=== PATIENT | female | born 1970 | race American Indian/Alaskan Native ===

== ENCOUNTER 2018-04-07 12:52 | Emergency (ER) | payer BC ==
[2018-04-07 12:58] VITALS: BP 150/73
[2018-04-07] MEDS ORDERED: predniSONE 20 MG Tab PO ONE (13:22)
[2018-04-07] MEDS ORDERED: Acetaminophen/HYDROcodone 325-10 MG Tab PO ONE (13:23)
[2018-04-07] MEDS ORDERED: Lidocaine 5% Oint 35.44 GM Tube TOP ONE (13:23)
[2018-04-07 13:54] LABS: ANION GAP 12.4; CHLORIDE,CL 105 mmol/L (101-111); SODIUM,NA 141 mmol/L (135-145)
--- NOTE | 2018-04-07 16:12 | EDM.PDOC ---
Scribed by Jenna Christiansen 04/07/18 1422 for Yang Sharma MD ED HPI GENERAL MEDICAL PROBLEM - General Chief Complaint: Lower Extremity Injury/Pain Stated Complaint: RT FOOT PROBLEMS [phone] Time Seen by Provider: 04/07/18 13:05 Source of Information: Reports: Patient, RN, RN Notes Reviewed History Limitations: Reports: No Limitations - History of Present Illness INITIAL COMMENTS - FREE TEXT/NARRATIVE: Patient presents to ER with complaint of severely painful right first toe without any injury, onset 3 days ago much worse today. Patient feels it is red, hot and swollen. Denies fever or chills. Right 1-Hallux Pain Score (Numeric/FACES): 7 - Related Data Allergies Allergy/AdvReac Type Severity Reaction Status Date / Time amoxicillin Allergy Hives Verified 04/07/18 12:58 Penicillins Allergy Rash Verified 04/07/18 12:58 Home Meds: Home Meds Lisinopril 10 mg PO DAILY 05/29/14 [History] Levothyroxine 112 mcg PO ACBREAKFAST 12/07/15 [History] Acetaminophen [Tylenol Extra Strength] 1,000 mg PO Q4H 02/04/16 [History] atorvaSTATin [Lipitor] 40 mg PO DAILY 04/07/18 [History] Past Medical History HEENT History: Reports: None Cardiovascular History: Reports: High Cholesterol, Hypertension Respiratory History: Reports: None Gastrointestinal History: Reports: None Genitourinary History: Reports: None 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 Musculoskeletal History: Reports: RA Neurological History: Reports: Headaches, Chronic Other Neuro History: headaches Psychiatric History: Reports: None Endocrine/Metabolic History: Reports: Hypoparathyroidism Hematologic History: Reports: None Immunologic History: Reports: Solid Organ Transplant Oncologic (Cancer) History: Reports: None Dermatologic History: Reports: None - Infectious Disease History Infectious Disease History: Reports: None - Past Surgical History Head Surgeries/Procedures: Reports: None GI Surgical History: Reports: Appendectomy Female Surgical History: Reports: Hysterectomy Social & Family History - Family History Family Medical History: Noncontributory - Tobacco Use Smoking Status *Q: Current Every Day Smoker Years of Tobacco use: 15 Packs/Tins Daily: 0.5 Second Hand Smoke Exposure: Yes - Recreational Drug Use Recreational Drug Use: No - Living Situation & Occupation Living situation: Reports: , with Family Occupation: Employed Review of Systems - Review of Systems Review Of Systems: ROS reveals no pertinent complaints other than HPI. ED EXAM, GENERAL - Physical Exam Exam: See Below Exam Limited By: No Limitations General Appearance: Alert, WD/WN, No Apparent Distress Eye Exam: Bilateral Eye: Normal Inspection Ears: Normal External Exam, Normal Canal, Hearing Grossly Normal, Normal TMs Nose: Normal Inspection, Normal Mucosa, No Blood Throat/Mouth: Normal Inspection, Normal Lips, Normal Teeth, Normal Gums, Normal Oropharynx, Normal Voice, No Airway Compromise Head: Atraumatic, Normocephalic Neck: Normal Inspection, Supple, Non-Tender, Full Range of Motion Respiratory/Chest: No Respiratory Distress, Lungs Clear, Normal Breath Sounds, No Accessory Muscle Use, Chest Non-Tender Cardiovascular: Normal Peripheral Pulses, Regular Rate, Rhythm, No Edema, No Gallop, No JVD, No Murmur, No Rub GI/Abdominal: Normal Bowel Sounds, Soft, Non-Tender, No Organomegaly, No Distention, No Abnormal Bruit, No Mass (Female) Exam: Deferred Rectal (Female) Exam: Deferred Back Exam: Normal Inspection, Full Range of Motion, NT Extremities: No Pedal Edema, Normal Capillary Refill, Joint Swelling (right first MTPJ with tenderness and erythema. Skin is intact. ), Increased Warmth Neurological: Alert, Oriented, CN II-XII Intact, Normal Cognition, Normal Gait, Normal Reflexes, No Motor/Sensory Deficits Psychiatric: Normal Affect, Normal Mood Skin Exam: Warm, Dry, Intact, Normal Color, No Rash Course - Vital Signs Last Recorded V/S: Last Vital Signs Temp 36.2 C 04/07/18 12:55 Pulse 88 04/07/18 12:55 Resp 18 04/07/18 12:55 BP 150/73 H 04/07/18 12:55 Pulse Ox 100 04/07/18 12:55 - Orders/Labs/Meds Orders: Active Orders 24 hr Category Date Time Status DME for Discharge [COMM] Routine Oth 04/07/18 14:22 Ordered Labs: Laboratory Tests 04/07/18 04/07/18 04/07/18 Range/Units 13:30 13:30 13:30 WBC 9.5 (5.0-10.0) 10^3/uL RBC 4.21 (4.2-5.4) 10^6/uL Hgb 13.9 (12.0-16.0) g/dL Hct 42.5 (37.0-47.0) % MCV 101.0 H (80-100) fL MCH 33.0 (27.0-34.0) pg MCHC 32.7 L (33.0-35.0) g/dL Plt Count 322 (150-450) 10^3/uL Neut % (Auto) 62.6 (42.2-75.2) % Lymph % (Auto) 26.5 (20.5-50.1) % [place] % (Auto) 6.7 (2-8) % Eos % (Auto) 3.9 H (1.0-3.0) % Baso % (Auto) 0.3 (0.0-1.0) % ESR 10 (0-20) mm/hr Sodium 141 (135-145) mmol/L Potassium 4.4 (3.6-5.0) mmol/L Chloride 105 (101-111) mmol/L Carbon Dioxide 28.0 (21.0-31.0) mmol/L Anion Gap 12.4 BUN 19 H (7-18) mg/dL Creatinine 0.9 (0.6-1.3) mg/dL Est Cr Clr Drug Dosing 70.78 mL/min Estimated GFR (MDRD) > 60 BUN/Creatinine Ratio 21.11 Glucose 171 H (74-105) mg/dL Uric Acid (2.6-7.2) mg/dL Calcium 9.0 (8.4-10.2) mg/dl Total Bilirubin 0.6 (0.2-1.0) mg/dL AST 19 (10-42) IU/L ALT 18 (10-60) IU/L Alkaline Phosphatase 55 (42-121) IU/L C-Reactive Protein 1.8 H (0.0-1.3) mg/dL Total Protein 7.5 (6.7-8.2) g/dl Albumin 4.3 (3.2-5.5) g/dl Globulin 3.2 Albumin/Globulin Ratio 1.34 04/07/18 Range/Units 13:30 WBC (5.0-10.0) 10^3/uL RBC (4.2-5.4) 10^6/uL Hgb (12.0-16.0) g/dL Hct (37.0-47.0) % MCV (80-100) fL MCH (27.0-34.0) pg MCHC (33.0-35.0) g/dL Plt Count (150-450) 10^3/uL Neut % (Auto) (42.2-75.2) % Lymph % (Auto) (20.5-50.1) % [place] % (Auto) (2-8) % Eos % (Auto) (1.0-3.0) % Baso % (Auto) (0.0-1.0) % ESR (0-20) mm/hr Sodium (135-145) mmol/L Potassium (3.6-5.0) mmol/L Chloride (101-111) mmol/L Carbon Dioxide (21.0-31.0) mmol/L Anion Gap BUN (7-18) mg/dL Creatinine (0.6-1.3) mg/dL Est Cr Clr Drug Dosing mL/min Estimated GFR (MDRD) BUN/Creatinine Ratio Glucose (74-105) mg/dL Uric Acid 6.5 (2.6-7.2) mg/dL Calcium (8.4-10.2) mg/dl Total Bilirubin (0.2-1.0) mg/dL AST (10-42) IU/L ALT (10-60) IU/L Alkaline Phosphatase (42-121) IU/L C-Reactive Protein (0.0-1.3) mg/dL Total Protein (6.7-8.2) g/dl Albumin (3.2-5.5) g/dl Globulin Albumin/Globulin Ratio Meds: Medications Discontinued Medications Generic Name Dose Route Start Last Admin Trade Name Freq PRN Reason Stop Dose Admin Hydrocodone Bitart/Acetaminophen 1 tab 04/07/18 13:23 04/07/18 13:35 Brilliant 325-10 Mg PO 04/07/18 13:24 1 tab ONETIME ONE Administration Lidocaine HCl 15 gm 04/07/18 13:23 04/07/18 13:36 Lidocaine 5% TOP 04/07/18 13:24 15 gm ONETIME ONE Administration Prednisone 60 mg 04/07/18 13:22 04/07/18 13:34 Prednisone PO 04/07/18 13:23 60 mg ONETIME ONE Administration Departure - Departure Time of Disposition: 14:18 Disposition: Home, Self-Care 01 Condition: Fair Clinical Impression: Rheumatoid arthritis flare, Acute hyperglycemia - Discharge Information Instructions: Arthritis, [id number], Hyperglycemia, [id number] Forms: ED Department Discharge Additional Instructions: Rx: Toradol 10mg Rx: Brilliant 5mg/325mg *Do not drive or work while under the influence of this medication. Use crutches as needed for comfort. Follow up in clinic in the next week for recheck. - My Orders Last 24 Hours: My Active Orders 04/07/18 14:22 DME for Discharge [COMM] Routine - Assessment/Plan Last 24 Hours: My Active Orders 04/07/18 14:22 DME for Discharge [COMM] Routine I have read and agree with the documentation that has been completed regarding this visit. By signing this record, I attest that the documentation was completed in my physical presence and is an accurate record of the encounter.
== END 2018-04-07 14:36 | disposition home or self-care (01) ==
LOC: DL.ED 12:52
DX: M06.9 Rheumatoid arthritis, unspecified (principal); R73.9 Hyperglycemia, unspecified; E20.9 Hypoparathyroidism, unspecified; I10 Essential (primary) hypertension; F17.210 Nicotine dependence, cigarettes, uncomplicated; E78.00 Pure hypercholesterolemia, unspecified; Z88.1 Allergy status to other antibiotic agents; Z88.0 Allergy status to penicillin; Z79.899 Other long term (current) drug therapy
CPT/HCPCS: 36415; 80053; 84550; 85025; 85651; 86140; 99283; A9270

== ENCOUNTER 2021-03-05 19:00 | Emergency (ER) | payer BC ==
[2021-03-05 19:25] VITALS: BP 146/89; PULSE 82
[2021-03-05] MEDS ORDERED: HYDROmorphone 0.5 MG/0.5 ML Syringe IVPUSH ONE (20:11)
--- NOTE | 2021-03-05 20:11 | EDM.PDOC ---
ED HPI GENERAL MEDICAL PROBLEM - General Chief Complaint: Abdominal Pain Stated Complaint: BACK AND ABD PAIN Time Seen by Provider: 03/05/21 19:55 Source of Information: Reports: Patient History Limitations: Reports: No Limitations - History of Present Illness INITIAL COMMENTS - FREE TEXT/NARRATIVE: This 51 yo female patient reports to the ED with increased abdominal and back p ain. The patient reports she was seen in the Clinic on Monday, had a gallbladder ultrasound on Monday, and notified today of the results. The patient reports she has had increased symptoms over the past 24 hours to the point that she is currently unable to tolerate the pain. Onset Date: 03/04/21 Duration: Constant, Getting Worse Location: Reports: Abdomen (upper abdomen and lower back pain) Quality: Reports: Ache, Pressure, Sharp Severity: Severe Improves with: Reports: None Worsens with: Reports: None Context: Reports: Other Associated Symptoms: Reports: No Other Symptoms - Related Data Allergies Allergy/AdvReac Type Severity Reaction Status Date / Time amoxicillin Allergy Hives Verified 04/07/18 12:58 Penicillins Allergy Rash Verified 04/07/18 12:58 Home Meds: Home Meds Lisinopril 10 mg PO DAILY 05/29/14 [History] Levothyroxine 112 mcg PO ACBREAKFAST 12/07/15 [History] Acetaminophen [Tylenol Extra Strength] 1,000 mg PO Q4H 02/04/16 [History] atorvaSTATin [Lipitor] 40 mg PO DAILY 04/07/18 [History] Past Medical History HEENT History: Reports: None Cardiovascular History: Reports: High Cholesterol, Hypertension Respiratory History: Reports: None Gastrointestinal History: Reports: Cholelithiasis Genitourinary History: Reports: None 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 Musculoskeletal History: Reports: None, RA Neurological History: Reports: Headaches, Chronic Other Neuro History: headaches Psychiatric History: Reports: None Endocrine/Metabolic History: Reports: Hypoparathyroidism Hematologic History: Reports: None Immunologic History: Reports: Solid Organ Transplant Oncologic (Cancer) History: Reports: None Dermatologic History: Reports: None - Infectious Disease History Infectious Disease History: Reports: None - Past Surgical History Head Surgeries/Procedures: Reports: None GI Surgical History: Reports: Appendectomy Female Surgical History: Reports: Hysterectomy Social & Family History - Family History Family Medical History: No Pertinent Family History - Tobacco Use Tobacco Use Status *Q: Current Every Day Tobacco User Years of Tobacco use: 20 Packs/Tins Daily: 0.5 - Living Situation & Occupation Living situation: Reports: , with Family Occupation: Employed ED ROS GENERAL - Review of Systems Review Of Systems: Comprehensive ROS is negative, except as noted in HPI. ED EXAM, GI/ABD - Physical Exam Exam: See Below Exam Limited By: No Limitations General Appearance: Alert, WD/WN, Moderate Distress Eyes: Bilateral: Normal Appearance, EOMI Ears: Normal External Exam, Normal Canal, Hearing Grossly Normal, Normal TMs Nose: Normal Inspection, Normal Mucosa, No Blood Throat/Mouth: Normal Inspection, Normal Lips, Normal Teeth, Normal Gums, Normal Oropharynx, Normal Voice, No Airway Compromise Head: Atraumatic, Normocephalic Neck: Normal Inspection, Supple, Non-Tender, Full Range of Motion Respiratory/Chest: No Respiratory Distress, Lungs Clear, Normal Breath Sounds, No Accessory Muscle Use, Chest Non-Tender Cardiovascular: Normal Peripheral Pulses, Regular Rate, Rhythm, No Edema, No Gallop, No JVD, No Murmur, No Rub GI/Abdominal Exam: Normal Bowel Sounds, No Organomegaly, No Distention, No Abnormal Bruit, No Mass, Pelvis Stable, Tender (upper abdomen) (Female) Exam: Deferred Rectal (Female) Exam: Deferred Back Exam: Normal Inspection, Full Range of Motion, NT Extremities: Normal Inspection, Normal Range of Motion, Non-Tender, Normal Capillary Refill, No Pedal Edema Neurological: Alert, Oriented, CN II-XII Intact, Normal Cognition, Normal Gait, Normal Reflexes, No Motor/Sensory Deficits Psychiatric: Normal Affect, Normal Mood Skin Exam: Warm, Dry, Intact, Normal Color, No Rash Lymphatic: No Adenopathy Course - Vital Signs Last Recorded V/S: Last Vital Signs Temp 98.2 F 03/05/21 19:23 Pulse 82 03/05/21 19:23 Resp 18 03/05/21 19:23 BP 146/89 H 03/05/21 19:23 Pulse Ox 97 03/05/21 19:23 - Orders/Labs/Meds Orders: Active Orders 24 hr Category Date Time Status Sodium Chloride 0.9% @ 125 MLS/HR (1000ml) Med 03/05/21 20:15 Ordered Sodium Chloride 0.9% [Normal Saline] 1,000 ml IV ASDIRECTED Medication Orders Sodium Chloride (Normal Saline) 1,000 mls @ 125 mls/hr IV ASDIRECTED CHENTE Labs: Laboratory Tests 03/05/21 03/05/21 03/05/21 Range/Units 20:09 20:16 20:16 WBC 9.7 (5.0-10.0) 10^3/uL RBC 4.15 L (4.2-5.4) 10^6/uL Hgb 14.0 (12.0-16.0) g/dL Hct 41.5 (37.0-47.0) % MCV 100.0 (80-100) fL MCH 33.7 (27.0-34.0) pg MCHC 33.7 (33.0-35.0) g/dL Plt Count 306 (150-450) 10^3/uL Neut % (Auto) 49.2 (42.2-75.2) % Lymph % (Auto) 37.6 (20.5-50.1) % [place] % (Auto) 7.8 (2-8) % Eos % (Auto) 5.0 H (1.0-3.0) % Baso % (Auto) 0.4 (0.0-1.0) % Sodium 147 H (136-145) mmol/L Potassium 4.0 (3.5-5.1) mmol/L Chloride 108 H (98-107) mmol/L Carbon Dioxide 26 (21-32) mmol/L Anion Gap 17.0 H (7-13) mEq/L BUN 13 (7-18) mg/dL Creatinine 0.97 (0.55-1.02) mg/dL Est Cr Clr Drug Dosing 63.51 mL/min Estimated GFR (MDRD) > 60 BUN/Creatinine Ratio 13.4 (No establ ref range) Glucose 145 H (70-99) mg/dL Lactic Acid (0.4-2.0) mmol/L Calcium 8.5 (8.5-10.1) mg/dL Total Bilirubin 0.2 (0.2-1.0) mg/dL AST 15 (15-37) U/L ALT 32 (14-59) U/L Alkaline Phosphatase 66 (46-116) U/L Total Protein 7.2 (6.4-8.2) g/dL Albumin 4.0 (3.4-5.0) g/dL Globulin 3.2 Albumin/Globulin Ratio 1.3 Amylase 53 (25-115) U/L Lipase 194 (73-393) U/L Urine Color Yellow (YELLOW) Urine Appearance Clear (CLEAR) Urine pH 6.0 (5.0-9.0) Ur Specific [place] 1.025 (1.005-1.030) Urine Protein Negative (NEGATIVE) Urine Glucose (UA) Negative (NEGATIVE) Urine Ketones Trace H (NEGATIVE) Urine Occult Blood Negative (NEGATIVE) Urine Nitrite Negative (NEGATIVE) Urine Bilirubin Negative (NEGATIVE) Urine Urobilinogen 1.0 (0.2-1.0) mg/dL Ur Leukocyte Esterase Negative (NEGATIVE) 03/05/21 Range/Units 20:16 WBC (5.0-10.0) 10^3/uL RBC (4.2-5.4) 10^6/uL Hgb (12.0-16.0) g/dL Hct (37.0-47.0) % MCV (80-100) fL MCH (27.0-34.0) pg MCHC (33.0-35.0) g/dL Plt Count (150-450) 10^3/uL Neut % (Auto) (42.2-75.2) % Lymph % (Auto) (20.5-50.1) % [place] % (Auto) (2-8) % Eos % (Auto) (1.0-3.0) % Baso % (Auto) (0.0-1.0) % Sodium (136-145) mmol/L Potassium (3.5-5.1) mmol/L Chloride (98-107) mmol/L Carbon Dioxide (21-32) mmol/L Anion Gap (7-13) mEq/L BUN (7-18) mg/dL Creatinine (0.55-1.02) mg/dL Est Cr Clr Drug Dosing mL/min Estimated GFR (MDRD) BUN/Creatinine Ratio (No establ ref range) Glucose (70-99) mg/dL Lactic Acid 1.2 (0.4-2.0) mmol/L Calcium (8.5-10.1) mg/dL Total Bilirubin (0.2-1.0) mg/dL AST (15-37) U/L ALT (14-59) U/L Alkaline Phosphatase (46-116) U/L Total Protein (6.4-8.2) g/dL Albumin (3.4-5.0) g/dL Globulin Albumin/Globulin Ratio Amylase (25-115) U/L Lipase (73-393) U/L Urine Color (YELLOW) Urine Appearance (CLEAR) Urine pH (5.0-9.0) Ur Specific [place] (1.005-1.030) Urine Protein (NEGATIVE) Urine Glucose (UA) (NEGATIVE) Urine Ketones (NEGATIVE) Urine Occult Blood (NEGATIVE) Urine Nitrite (NEGATIVE) Urine Bilirubin (NEGATIVE) Urine Urobilinogen (0.2-1.0) mg/dL Ur Leukocyte Esterase (NEGATIVE) Meds: Medications Generic Name Dose Route Start Last Admin Trade Name Freq PRN Reason Stop Dose Admin Sodium Chloride 1,000 mls @ 125 mls/hr 03/05/21 20:15 Normal Saline IV ASDIRECTED CHENTE Discontinued Medications Generic Name Dose Route Start Last Admin Trade Name Freq PRN Reason Stop Dose Admin Hydromorphone HCl 0.5 mg 03/05/21 20:11 03/05/21 20:47 Hydromorphone 0.5 Mg/0.5 Ml Syringe IVPUSH 03/05/21 20:12 0.5 mg ONETIME ONE Administration - Re-Assessments/Exams Free Text/Narrative Re-Assessment/Exam: 03/05/21 21:11 Discussed the lab results with the patient. No CT will be done during the visit today. The patient will be given pain medication to take as needed. The patient should follow-up with her primary next week. Departure - Departure Time of Disposition: 21:12 Disposition: Home, Self-Care 01 Condition: Fair Clinical Impression: Disease of gallbladder - Discharge Information *PRESCRIPTION DRUG MONITORING PROGRAM REVIEWED*: Not Applicable *COPY OF PRESCRIPTION DRUG MONITORING REPORT IN PATIENT JUANI: Not Applicable Forms: ED Department Discharge Care Plan Goals: The patient was advised of the examination and lab results during the visit. The patient was given an IV dose of Dilaudid while in the ED. The patient was discharged with a script for [place] () #8 to take 1 by mouth every 6 hours as needed for pain. The patient should follow-up with her primary care facility next week as scheduled. If the patient has any additional symptoms or concerns, the patient should either return to the emergency department or visit her primary care facility. Sepsis Event Note (ED) - Evaluation Sepsis Screening Result: No Definite Risk - Focused Exam Vital Signs: Vital Signs Temp Pulse Resp BP Pulse Ox 03/05/21 19:23 98.2 F 82 18 146/89 H 97 - My Orders Last 24 Hours: My Active Orders 03/05/21 20:15 Sodium Chloride 0.9% @ 125 MLS/HR (1000ml) Sodium Chloride 0.9% [Normal Saline] 1,000 ml IV ASDIRECTED - Assessment/Plan Last 24 Hours: My Active Orders 03/05/21 20:15 Sodium Chloride 0.9% @ 125 MLS/HR (1000ml) Sodium Chloride 0.9% [Normal Saline] 1,000 ml IV ASDIRECTED
[2021-03-05] MEDS ORDERED: Sodium Chloride 0.9% 1,000 ML IV SCH (20:15)
[2021-03-05 20:41] LABS: CHLORIDE,CL 108 mmol/L (98-107); SODIUM,NA 147 mmol/L (136-145)
== END 2021-03-05 21:22 | disposition home or self-care (01) ==
LOC: DL.ED 19:00
DX: K82.9 Disease of gallbladder, unspecified (principal); E03.9 Hypothyroidism, unspecified; Z88.0 Allergy status to penicillin; Z79.899 Other long term (current) drug therapy; Z72.0 Tobacco use
CPT/HCPCS: 36415; 80053; 81003; 82150; 83605; 83690; 85025; 96374; 99284; J1170

== ENCOUNTER 2021-03-31 08:03 | Emergency (ER) | payer BC ==
[2021-03-31] MEDS ORDERED: Ondansetron 4 MG/2 ML SDV IVPUSH ONE (08:19)
[2021-03-31 08:45] VITALS: BP 117/54; PULSE 70
[2021-03-31 08:48] LABS: ANION GAP 15.9 mEq/L (7-13); CHLORIDE,CL 105 mmol/L (98-107); SODIUM,NA 142 mmol/L (136-145)
[2021-03-31] MEDS ORDERED: Iopamidol 612 MG/ML 100 ML Bottle IVPUSH ONE (08:58)
[2021-03-31 09:15] LABS: AMPHETAMINES,URINE NEGATIVE (NEGATIVE); BARBITURATES,URINE NEGATIVE (NEGATIVE); BENZODIAZEPINE,URINE NEGATIVE (NEGATIVE); MDMA (ECSTASY), URINE NEGATIVE (NEGATIVE); METHADONE,URINE NEGATIVE (NEGATIVE); METHAMPHETAMINES,URINE NEGATIVE (NEGATIVE); OPIATES,URINE NEGATIVE (NEGATIVE); OXYCODONE,URINE NEGATIVE (NEGATIVE); PHENCYCLIDINE,URINE NEGATIVE (NEGATIVE); TCA,URINE NEGATIVE (NEGATIVE)
--- NOTE | 2021-03-31 09:46 | CT ---
PROCEDURE INFORMATION: Exam: CT Abdomen And Pelvis With Contrast Exam date and time: 03/31/2021 9:11 AM Age: 51 years old Clinical indication: Other: S/P lap radha on 03/09/21; Ruq pain x1 week; Prior surgery; Surgery date: <1 month TECHNIQUE: Imaging protocol: Computed tomography of the abdomen and pelvis with contrast. Radiation optimization: All CT scans at this facility use at least one of these dose optimization techniques: automated exposure control; mA and/or kV adjustment per patient size (includes targeted exams where dose is matched to clinical indication); or iterative reconstruction. Contrast material: ISOVUE 300; Contrast volume: 75 ml; Contrast route: INTRAVENOUS (IV); COMPARISON: US Abdomen Comp 03/01/2021 9:00 AM FINDINGS: Liver: Diffuse fatty infiltration of the liver. The liver is enlarged at 21.6 cm. Gallbladder and bile ducts: Cholecystectomy. No dilatation of intrahepatic bile ducts. Common bile duct measures 7 mm. No stones identified within the duct. Pancreas: Normal. No ductal dilation. Spleen: Spleen measures 9.9 cm. Adrenal glands: Normal. No mass. Kidneys and ureters: Left kidney is absent. Stomach and bowel: No dilatation of large or small bowel loops. No evidence of bowel obstruction. Appendix: No evidence of appendicitis. Intraperitoneal space: No free intraperitoneal air or fluid. Retroperitoneal space: Surgical clips present in the retroperitoneum. Vasculature: Unremarkable. No abdominal aortic aneurysm. Lymph nodes: Unremarkable. No enlarged lymph nodes. Urinary bladder: Unremarkable as visualized. Reproductive: Unremarkable as visualized. Bones/joints: Unremarkable. No acute fracture. Soft tissues: Midline fat containing periumbilical hernia. Defect measures 24 mm. Other findings: No localized fluid collection or biloma. IMPRESSION: 1. Prior cholecystectomy. No evidence of biloma. 2. No dilatation of bile ducts. 3. Hepatomegaly with diffuse fatty infiltration of the liver. 4. Prior left nephrectomy. 5. Midline periumbilical fat containing hernia. No bowel obstruction.
--- NOTE | 2021-03-31 09:59 | EDM.PDOC ---
ED HPI GENERAL MEDICAL PROBLEM - General Chief Complaint: Abdominal Pain Stated Complaint: [id number] A LOT OF PAIN IN STOMACH Time Seen by Provider: 03/31/21 09:00 Source of Information: Reports: Patient, Family (), RN, RN Notes Reviewed History Limitations: Reports: No Limitations - History of Present Illness INITIAL COMMENTS - FREE TEXT/NARRATIVE: Shahid is a 51 y/o female who is POD #22 s/p lap cholecystectomy with Dr. Dawn at [facility] who presents to the ED via personal vehicle with for complaints of midepigastric pain, rigors, nausea, and vomiting. The patient reports her pain has waxed and wanes since surgery, but has progressively worsened over the past week. Additionally, she notes her nausea began last evening and she experienced several bouts of emesis this morning. The patient reports bilious diarrhea since surgery, as well. She denies fever, palpitations, shortness of breath, melena, hematochezia, dysuria, or hematuria. She denies tobacco, alcohol, or recreational drug use. The patient states she has taken no medications for her symptoms. - Related Data Allergies Allergy/AdvReac Type Severity Reaction Status Date / Time amoxicillin Allergy Hives Verified 04/07/18 12:58 Penicillins Allergy Rash Verified 04/07/18 12:58 Home Meds: Home Meds Lisinopril 10 mg PO DAILY 05/29/14 [History] Levothyroxine 112 mcg PO ACBREAKFAST 12/07/15 [History] Acetaminophen [Tylenol Extra Strength] 1,000 mg PO Q4H 02/04/16 [History] atorvaSTATin [Lipitor] 40 mg PO DAILY 04/07/18 [History] metFORMIN HCl [Metformin HCl] 1,000 mg PO BID 03/31/21 [History] Past Medical History HEENT History: Reports: None Cardiovascular History: Reports: High Cholesterol, Hypertension Respiratory History: Reports: None Gastrointestinal History: Reports: Cholelithiasis Genitourinary History: Reports: None BUSINESS ANALYSIS CONSULTANT History: Reports: None Musculoskeletal History: Reports: None, RA Neurological History: Reports: Headaches, Chronic Other Neuro History: headaches Psychiatric History: Reports: None Endocrine/Metabolic History: Reports: Hypoparathyroidism Hematologic History: Reports: None Immunologic History: Reports: Solid Organ Transplant Oncologic (Cancer) History: Reports: None Dermatologic History: Reports: None - Infectious Disease History Infectious Disease History: Reports: None - Past Surgical History Head Surgeries/Procedures: Reports: None GI Surgical History: Reports: Appendectomy, Cholecystectomy Female Surgical History: Reports: Hysterectomy Social & Family History - Family History Family Medical History: No Pertinent Family History - Tobacco Use Tobacco Use Status *Q: Current Every Day Tobacco User Years of Tobacco use: 20 Packs/Tins Daily: 1 - Caffeine Use Caffeine Use: Reports: Coffee, Soda - Recreational Drug Use Recreational Drug Use: No - Living Situation & Occupation Living situation: Reports: , with Family Occupation: Employed ED ROS GENERAL - Review of Systems Review Of Systems: Comprehensive ROS is negative, except as noted in HPI. ED EXAM, GI/ABD - Physical Exam Exam: See Below Exam Limited By: No Limitations General Appearance: Alert, Mild Distress (Midepigastric pain), Obese. No: Active Emesis Eyes: Bilateral: Normal Appearance, EOMI Ears: Normal External Exam, Hearing Grossly Normal Nose: Normal Inspection, Normal Mucosa, No Blood Throat/Mouth: Normal Inspection, Normal Oropharynx, Normal Voice, No Airway Compromise Head: Atraumatic, Normocephalic Neck: Normal Inspection, Supple, Non-Tender, Full Range of Motion Respiratory/Chest: No Respiratory Distress, Lungs Clear, Normal Breath Sounds, No Accessory Muscle Use, Chest Non-Tender Cardiovascular: Normal Peripheral Pulses, Regular Rate, Rhythm, No Edema, No Gallop, No JVD, No Murmur, No Rub GI/Abdominal Exam: Soft, No Distention, No Abnormal Bruit, No Mass, Pelvis Stable, Tender (To bilateral upper quadrants), Abnormal Bowel Sounds (Hypoactive bowel sounds) (Female) Exam: Deferred Rectal (Female) Exam: Deferred Back Exam: Normal Inspection, Full Range of Motion. No: CVA Tenderness (L), CVA Tenderness (R) Extremities: Normal Inspection, Normal Range of Motion, Non-Tender, Normal Capillary Refill, No Pedal Edema Neurological: Alert, Oriented, CN II-XII Intact, Normal Cognition, Normal Gait, No Motor/Sensory Deficits Psychiatric: Normal Affect, Normal Mood Skin Exam: Warm, Dry, Intact, Normal Color, No Rash. No: Cyanosis, Jaundice, Mottled, Pallor Lymphatic: No Adenopathy Course - Vital Signs Last Recorded V/S: Last Vital Signs Temp 98 F 03/31/21 08:44 Pulse 70 03/31/21 08:44 Resp 14 03/31/21 08:44 BP 117/54 L 03/31/21 08:44 Pulse Ox 96 03/31/21 08:44 - Orders/Labs/Meds Labs: Laboratory Tests 03/31/21 03/31/21 03/31/21 Range/Units 08:20 08:20 08:20 WBC 9.2 (5.0-10.0) 10^3/uL RBC 4.38 (4.2-5.4) 10^6/uL Hgb 14.4 (12.0-16.0) g/dL Hct 43.5 (37.0-47.0) % MCV 99.3 (80-100) fL MCH 32.9 (27.0-34.0) pg MCHC 33.1 (33.0-35.0) g/dL Plt Count 342 (150-450) 10^3/uL Neut % (Auto) 65.7 (42.2-75.2) % Lymph % (Auto) 23.4 (20.5-50.1) % [place] % (Auto) 5.8 (2-8) % Eos % (Auto) 4.8 H (1.0-3.0) % Baso % (Auto) 0.3 (0.0-1.0) % Sodium 142 (136-145) mmol/L Potassium 4.9 (3.5-5.1) mmol/L Chloride 105 (98-107) mmol/L Carbon Dioxide 26 (21-32) mmol/L Anion Gap 15.9 H (7-13) mEq/L BUN 13 (7-18) mg/dL Creatinine 0.79 (0.55-1.02) mg/dL Est Cr Clr Drug Dosing 84.03 mL/min Estimated GFR (MDRD) > 60 BUN/Creatinine Ratio 16.5 (No establ ref range) Glucose 138 H (70-99) mg/dL Lactic Acid 0.8 (0.4-2.0) mmol/L Calcium 8.7 (8.5-10.1) mg/dL Magnesium 1.9 (1.8-2.4) mg/dL Total Bilirubin 0.8 (0.2-1.0) mg/dL AST 133 H (15-37) U/L ALT 98 H (14-59) U/L Alkaline Phosphatase 94 (46-116) U/L C-Reactive Protein 0.2 (0.0-0.9) mg/dL Total Protein 7.4 (6.4-8.2) g/dL Albumin 4.0 (3.4-5.0) g/dL Globulin 3.4 Albumin/Globulin Ratio 1.2 Amylase 44 (25-115) U/L Lipase 199 (73-393) U/L Urine Color (YELLOW) Urine Appearance (CLEAR) Urine pH (5.0-9.0) Ur Specific [place] (1.005-1.030) Urine Protein (NEGATIVE) Urine Glucose (UA) (NEGATIVE) Urine Ketones (NEGATIVE) Urine Occult Blood (NEGATIVE) Urine Nitrite (NEGATIVE) Urine Bilirubin (NEGATIVE) Urine Urobilinogen (0.2-1.0) mg/dL Ur Leukocyte Esterase (NEGATIVE) Urine Opiates Screen (NEGATIVE) Ur Oxycodone Screen (NEGATIVE) Urine Methadone Screen (NEGATIVE) Ur Barbiturates Screen (NEGATIVE) U Tricyclic Antidepress (NEGATIVE) Ur Phencyclidine Scrn (NEGATIVE) Ur Amphetamine Screen (NEGATIVE) U Methamphetamines Scrn (NEGATIVE) Urine MDMA Screen (NEGATIVE) U Benzodiazepines Scrn (NEGATIVE) Urine Cocaine Screen (NEGATIVE) U Marijuana (THC) Screen (NEGATIVE) Ethyl Alcohol < 3 (0) mg/dL 03/31/21 03/31/21 Range/Units 09:00 09:00 WBC (5.0-10.0) 10^3/uL RBC (4.2-5.4) 10^6/uL Hgb (12.0-16.0) g/dL Hct (37.0-47.0) % MCV (80-100) fL MCH (27.0-34.0) pg MCHC (33.0-35.0) g/dL Plt Count (150-450) 10^3/uL Neut % (Auto) (42.2-75.2) % Lymph % (Auto) (20.5-50.1) % [place] % (Auto) (2-8) % Eos % (Auto) (1.0-3.0) % Baso % (Auto) (0.0-1.0) % Sodium (136-145) mmol/L Potassium (3.5-5.1) mmol/L Chloride (98-107) mmol/L Carbon Dioxide (21-32) mmol/L Anion Gap (7-13) mEq/L BUN (7-18) mg/dL Creatinine (0.55-1.02) mg/dL Est Cr Clr Drug Dosing mL/min Estimated GFR (MDRD) BUN/Creatinine Ratio (No establ ref range) Glucose (70-99) mg/dL Lactic Acid (0.4-2.0) mmol/L Calcium (8.5-10.1) mg/dL Magnesium (1.8-2.4) mg/dL Total Bilirubin (0.2-1.0) mg/dL AST (15-37) U/L ALT (14-59) U/L Alkaline Phosphatase (46-116) U/L C-Reactive Protein (0.0-0.9) mg/dL Total Protein (6.4-8.2) g/dL Albumin (3.4-5.0) g/dL Globulin Albumin/Globulin Ratio Amylase (25-115) U/L Lipase (73-393) U/L Urine Color Yellow (YELLOW) Urine Appearance Clear (CLEAR) Urine pH 6.0 (5.0-9.0) Ur Specific [place] 1.010 (1.005-1.030) Urine Protein Negative (NEGATIVE) Urine Glucose (UA) Negative (NEGATIVE) Urine Ketones Negative (NEGATIVE) Urine Occult Blood Negative (NEGATIVE) Urine Nitrite Negative (NEGATIVE) Urine Bilirubin Negative (NEGATIVE) Urine Urobilinogen 0.2 (0.2-1.0) mg/dL Ur Leukocyte Esterase Negative (NEGATIVE) Urine Opiates Screen Negative (NEGATIVE) Ur Oxycodone Screen Negative (NEGATIVE) Urine Methadone Screen Negative (NEGATIVE) Ur Barbiturates Screen Negative (NEGATIVE) U Tricyclic Antidepress Negative (NEGATIVE) Ur Phencyclidine Scrn Negative (NEGATIVE) Ur Amphetamine Screen Negative (NEGATIVE) U Methamphetamines Scrn Negative (NEGATIVE) Urine MDMA Screen Negative (NEGATIVE) U Benzodiazepines Scrn Negative (NEGATIVE) Urine Cocaine Screen Negative (NEGATIVE) U Marijuana (THC) Screen Negative (NEGATIVE) Ethyl Alcohol (0) mg/dL Meds: Medications Discontinued Medications Generic Name Dose Route Start Last Admin Trade Name Freq PRN Reason Stop Dose Admin Al Hydroxide/Mg Hydroxide 30 ml 03/31/21 10:07 03/31/21 10:22 Gi Cocktail Oral Solution 30 Ml PO 03/31/21 10:08 30 ml ONETIME ONE Administration Iopamidol 100 ml 03/31/21 08:58 03/31/21 09:17 Iopamidol 612 Mg/Ml 100 Ml Bottle IVPUSH 03/31/21 08:59 75 ml ONETIME ONE Administration Ondansetron HCl 4 mg 03/31/21 08:19 03/31/21 08:35 Ondansetron 4 Mg/2 Ml Sdv IVPUSH 03/31/21 08:20 4 mg ONETIME ONE Administration - Radiology Interpretation Free Text/Narrative:: [facility] Final Radiology Report Call: [phone] assistance Online chat: [email or web address] Name: SHAHID LOZA Age: 51Years F Date: 03/31/2021 SSN: -- : [id number] Study: CT ABDOMEN PELVIS W CONT Requesting Physician: Nicole Bonner Images: 250 Addl Studies: Provided Clinical History: s/p lap radha on 03/09/21; RUQ pain x1 week Contrast: With Contrast Medium: Isovue 300 Contrast Amount: 75 mL Contrast Method: Intravenous (IV) Page 1 of 2 PROCEDURE INFORMATION: Exam: CT Abdomen And Pelvis With Contrast Exam date and time: 03/31/2021 9:11 AM Age: 51 years old Clinical indication: Other: S/P lap rdaha on 03/09/21; Ruq pain x1 week; Prior surgery; Surgery date: <1 month TECHNIQUE: Imaging protocol: Computed tomography of the abdomen and pelvis with contrast. Radiation optimization: All CT scans at this facility use at least one of these dose optimization techniques: automated exposure control; mA and/or kV adjustment per patient size (includes targeted exams where dose is matched to clinical indication); or iterative reconstruction. Contrast material: ISOVUE 300; Contrast volume: 75 ml; Contrast route: INTRAVENOUS (IV); COMPARISON: US Abdomen Comp 03/01/2021 9:00 AM FINDINGS: Liver: Diffuse fatty infiltration of the liver. The liver is enlarged at 21.6 cm. Gallbladder and bile ducts: Cholecystectomy. No dilatation of intrahepatic bile ducts. Common bile duct measures 7 mm. No stones identified within the duct. Pancreas: Normal. No ductal dilation. Spleen: Spleen measures 9.9 cm. Adrenal glands: Normal. No mass. Kidneys and ureters: Left kidney is absent. Stomach and bowel: No dilatation of large or small bowel loops. No evidence of bowel obstruction. Appendix: No evidence of appendicitis. Intraperitoneal space: No free intraperitoneal air or fluid. Retroperitoneal space: Surgical clips present in the retroperitoneum. Vasculature: Unremarkable. No abdominal aortic aneurysm. Lymph nodes: Unremarkable. No enlarged lymph nodes. Urinary bladder: Unremarkable as visualized. Reproductive: Unremarkable as visualized. Bones/joints: Unremarkable. No acute fracture. Soft tissues: Midline fat containing periumbilical hernia. Defect measures 24 mm. Other findings: No localized fluid collection or biloma. IMPRESSION: 1. Prior cholecystectomy. No evidence of biloma. 2. No dilatation of bile ducts. 3. Hepatomegaly with diffuse fatty infiltration of the liver. 4. Prior left nephrectomy. 5. Midline periumbilical fat containing hernia. No bowel obstruction. Thank you for allowing us to participate in the care of your patient. Dictated and Authenticated by: Carl Wilson MD 03/31/2021 9:46 AM Central Time ([place] & [place]) - Re-Assessments/Exams Free Text/Narrative Re-Assessment/Exam: 03/31/21 Zofran 4mg IVP administered while labs pending. Will obtain CT abdomen/pelvis. Patient verbalized moderate improvement in nausea following antiemetic. Still verbalizes midepigastric discomfort. Will administer GI cocktail Findings of examination, lab work, and imaging reviewed with patient and . Will treat nausea with Zofran. Patient instructed to follow up with Dr. Dawn tomorrow, as previously scheduled. Red flag signs and symptoms which would warrant reevaluation reviewed. Patient and verbalized understanding and agreement with the plan of care. Departure - Departure Time of Disposition: 10:10 Disposition: Home, Self-Care 01 Condition: Fair Clinical Impression: History of laparoscopic cholecystectomy, Epigastric abdominal pain, Elevated liver function tests Nausea & vomiting Qualifiers: Vomiting type: bilious vomiting Qualified Code(s): R11.14 - Bilious vomiting - Discharge Information *PRESCRIPTION DRUG MONITORING PROGRAM REVIEWED*: Not Applicable *COPY OF PRESCRIPTION DRUG MONITORING REPORT IN PATIENT JUANI: Not Applicable Instructions: Nausea and Vomiting, Adult Forms: ED Department Discharge Additional Instructions: Rx: Zofran ODT 1.) Continue with your previously scheduled appointment with Dr. Dawn tomorrow. 2.) Drink small, frequent sips of water to stay hydrated and avoid nausea. 3.) Eat a bland, easily digestible diet, including applesauce, toast, crackers, yogurt, etc... Avoid spicy, greasy, high-fat foods. 4.) You may try TUMs, Maalox, Pepcid, etc.. should you experience midepigastric pain. 5.) Return to the emergency department with any worsening or persistent symptoms despite medications and supportive cares. Sepsis Event Note (ED) - Focused Exam Vital Signs: Vital Signs Temp Pulse Resp BP Pulse Ox 03/31/21 08:44 98 F 70 14 117/54 L 96
[2021-03-31] MEDS ORDERED: GI Cocktail Oral Solution 30 ML PO ONE (10:07)
== END 2021-03-31 10:49 | disposition home or self-care (01) ==
LOC: DL.ED 08:03
DX: R11.2 Nausea with vomiting, unspecified (principal); R10.13 Epigastric pain; E78.00 Pure hypercholesterolemia, unspecified; I10 Essential (primary) hypertension; E03.9 Hypothyroidism, unspecified; R79.89 Other specified abnormal findings of blood chemistry; Z88.0 Allergy status to penicillin; Z79.84 Long term (current) use of oral hypoglycemic drugs; Z72.0 Tobacco use; Z90.49 Acquired absence of other specified parts of digestive tract; Z79.899 Other long term (current) drug therapy
CPT/HCPCS: 36415; 74177; 80053; 80305-QW; 80307; 81003; 82150; 83605; 83690; 83735; 85025; 86140; 96374; 99284-25; A9270-GY; J2405; Q9967

== ENCOUNTER 2022-11-07 10:16 | Emergency (ER) | payer BC, OTHER ==
[2022-11-07 10:30] VITALS: BP 158/91; PULSE 78
[2022-11-07] MEDS ORDERED: Ketorolac 30 MG/ML SDV IM ONE (11:05)
[2022-11-07] MEDS ORDERED: Orphenadrine 60 MG/2 ML Inj IM ONE (11:05)
== END 2022-11-07 11:36 | disposition home or self-care (01) ==
LOC: DL.ED 10:16
DX: M62.830 Muscle spasm of back (principal); E78.00 Pure hypercholesterolemia, unspecified; I10 Essential (primary) hypertension; E03.9 Hypothyroidism, unspecified; Z88.0 Allergy status to penicillin; Z79.899 Other long term (current) drug therapy; Z72.0 Tobacco use
CPT/HCPCS: 96372; 99283; J1885; J2360

== ENCOUNTER 2022-11-15 05:01 | Emergency (ER) | payer BC ==
[2022-11-15 05:58] VITALS: BP 156/103; PULSE 77
[2022-11-15] MEDS ORDERED: Acetaminophen/HYDROcodone 325-5 MG Tab PO ONE (06:06)
[2022-11-15] MEDS ORDERED: Dexamethasone 4 MG/ML SDV IM ONE (07:16)
== END 2022-11-15 07:42 | disposition home or self-care (01) ==
LOC: DL.ED 05:01
DX: S39.012A Strain of muscle, fascia and tendon of lower back, initial encounter (principal); M62.830 Muscle spasm of back; I10 Essential (primary) hypertension; E03.9 Hypothyroidism, unspecified; Z88.0 Allergy status to penicillin; Z79.899 Other long term (current) drug therapy; Z72.0 Tobacco use
CPT/HCPCS: 72100; 81003; 96372; 99283; A9270; J1100; J3360